=== PATIENT | female | born 1980 | race African-American/Black ===

== ENCOUNTER 2018-11-26 13:24 | Inpatient (IN) | payer OTHER ==
[~2018-11-26] VITALS: Ht 154.9 cm; Wt 181.4 kg
[2018-11-26 13:25] VITALS: BP 106/50
[2018-11-26 14:34] LABS: HEMATOCRIT 36.6 % (37.0-47.0); HEMOGLOBIN 12.1 gm/dL (12.0-15.0); MCH 29.5 pg (26.0-34.0); MCHC 32.9 g/dL (28.0-37.0); MCV 89.6 fL (80.0-100.0); PLATELET COUNT 176 thou/uL (150-400); RBC 4.09 mil/uL (4.20-5.00); RDW 16.2 % (10.5-14.5); WBC 7.2 thou/uL (4.0-11.0)
[2018-11-26 14:43] LABS: ANION GAP 8 mmol/L (7-16); BUN 28 mg/dL (7-18); CALCIUM 8.8 mg/dL (8.5-10.1); CHLORIDE 108 mmol/L (98-107); CO2 24 mmol/L (21-32); CREATININE 2.1 mg/dL (0.6-1.0); GLUCOSE 74 mg/dL (74-106); POTASSIUM 5.8 mmol/L (3.5-5.1); SODIUM 140 mmol/L (136-145)
[2018-11-26 14:52] LABS: TROPONIN-I <0.06 ng/mL (<0.06)
[2018-11-26 14:53] LABS: URINE BILIRUBIN NEGATIVE (Negative); URINE BLOOD NEGATIVE (Negative); URINE CLARITY CLEAR; URINE COLOR YELLOW; URINE GLUCOSE-RANDOM* NEGATIVE (Negative); URINE KETONES NEGATIVE (Negative); URINE NITRITE-REFLEX NEGATIVE (Negative); URINE PROTEIN (DIPSTICK) NEGATIVE (Negative); URINE UROBILINOGEN 0.2 E.U./dl (0.2-1.0)
[2018-11-26 14:55] LABS: URINE LEUKOCYTES-REFLEX 1+ (Negative)
[2018-11-26 15:01] LABS: BACTERIA-REFLEX None Seen /HPF (None Seen); CRYSTALS None Seen /LPF (None Seen); HYALINE CASTS 0-3 Few /LPF (None Seen); SQUAMOUS 4-10 Moderate /LPF (0-3); URINE RBC 0-2 Rare /HPF (0-2); URINE WBC-REFLEX 0-5 Rare /HPF (0-5)
[2018-11-26] MEDS ORDERED: NYSTATIN1 EA10 TOP (16:05)
[2018-11-26] MEDS ORDERED: B-1100 MG PO (16:05)
[2018-11-26] MEDS ORDERED: TRAMADOL 50 MG50 MG PO (16:05)
[2018-11-26] MEDS ORDERED: GABAPENTIN250 MG/5 M PO (16:06)
[2018-11-26] MEDS ORDERED: LASIX 40 MG TAB40 M2 PO (16:06)
[2018-11-26] MEDS ORDERED: CEFDINIR S250 MG/5 M PO (16:07)
[2018-11-26] MEDS ORDERED: LORAZEPAM 0.50.5 M1 PO (16:08)
[2018-11-26] MEDS ORDERED: FOLIC ACID1 MG PO (16:09)
[2018-11-26 18:06] VITALS: BP 136/84
[2018-11-26 20:00] VITALS: BP 135/60
[2018-11-26 21:17] LABS: CALCIUM 8.6 mg/dL (8.5-10.1); CREATININE 1.9 mg/dL (0.6-1.0); POTASSIUM 5.1 mmol/L (3.5-5.1)
--- NOTE | 2018-11-27 03:34 | NUR ---
NEW ADMIT FOR HYPERKALEMIA. PATIENT AOX4 MAKES NEEDS KNOWN. PATIENT CALM AND COOPERATIVE WITH MEDS AND CARE.PATIENT HAD KAYEXALATE IN THE ER, PATIENT THINKS SHE HAD LOOSE STOOLS BECAUSE OF TAKING KAYEXALATE, PATIENT CONTINOUS TO SAY SHE GETS LOOSE STOOLS WHEN SHE EATS SWEETS STUFF AND SHE HAS DUMPING SYNDROWE. SEVERAL STOOLS WERE YELLOW IN COLOR AND CHARTED IN AppSame, STOOLS HAS NO ODOR. CALCULATING MACHINE MECHANIC CALLED NEW ORDER OF IMMODIUM. PAIN MEDS GIVEN PER ORDER, PAIN 8 TO THE SCALE OF 0-10, 10 BEING THE WORST. PATIENT IN BED ASLEEP NO S/S OF PAIN OR DISCOMFORT. PATIENT IS ON 2L OF OXYGEN NO SHORTNESS OF AIR OR DISTRESS NOTED THIS SHIFT. PATIENT NEEDS X2-3 ASSIST WITH ADL, BED MOBILITY, TRANSFER AND TOILETING. PATIENT USES A BED CHEN. PATIENT SKIN IS WARM AND INTACT, NO BRUISES OR OPEN AREAS NOTED. PATIENT IN BED ASLEEP AT THIS TIME BREATHING REGULAR AND UNLABOURED.
[2018-11-27 05:24] LABS: ALBUMIN 1.7 g/dL (3.4-5.0); CALCIUM 8.5 mg/dL (8.5-10.1); CREATININE 1.9 mg/dL (0.6-1.0); PHOSPHORUS 4.4 mg/dL (2.5-4.9)
[2018-11-27 05:25] LABS: POTASSIUM 4.1 mmol/L (3.5-5.1)
[2018-11-27 08:00] VITALS: BP 102/57
[2018-11-27] MEDS ORDERED: TRAMADOL 50 MG50 MG PO (09:28)
--- NOTE | 2018-11-27 11:56 | NUR ---
Assumed pt care this am, pt is obese and canont get off the bed. Pt mentioned that she was in [facility] ([phone]) for 8 days prior to going home. Pt spent 1 day at home prior to admissions here d/t fall. Pt did not complete her stay in [facility] due to unsatisfactory service as per pt. Pt did verbalize that she wants to go back to a different rehab. DC orders given by Dr. Bennett, informed washhouse worker since pt was not seen by CM. Spoke to Ysabel and informed her. Dr. Bennett informed us that he had spoken to Maryana (MAUDE) yesterday and arrangements were to be made. Left a vm for Amairani to get back to us.
[2018-11-27 15:00] VITALS: BP 115/65
[2018-11-27 19:45] VITALS: BP 117/65
[2018-11-28 03:31] VITALS: BP 131/62
[2018-11-28 07:35] VITALS: BP 123/57
--- NOTE | 2018-11-28 07:44 | NUR ---
PT LYING IN BED. VOIDING PER BEDPAN. RESTING COMFORTABLY. NO NEEDS VOICED. CALL LIGHT WITHIN REACH. WILL CONTINUE TO PROVIDE FREQUENT OBSERVATION.
[2018-11-28 13:18] VITALS: BP 127/78
--- NOTE | 2018-11-28 17:00 | NUR ---
ASSUMED CARE AT 0700. AXOX4. SEEN BY AND PT WAS ALREADY MEDICALLY STABLE TO D/C HOME YESTURDAY. PT REQUESTED TO BE SENT TO REHAB. PER MD, SOCIAL SERVICE WAS NOTIFIED AND SW TO F/U TOMORROW. IVF D/C TODAY. NO S/S ACUTE DISTRESS NOTED OR REPORTED AT THIS TIME. WILL CONT TO MONITOR FOR ANY CHANGES IN CONDITION.
[2018-11-28 19:20] VITALS: BP 131/70
--- NOTE | 2018-11-28 21:54 | EKG ---
[address] [place] [address] ELECTROCARDIOGRAM REPORT Name: THOMAS ZHONG Room #: 461-P ADM IN M.R.#: [id number] Admission: 11/26/18 Attend Phys: Holly Bennett Discharge: Date of : 78 Report #: [id number] THIS REPORT FOR: //name// [facility] ED Test Date: 2018-11-26 Test Time: 13:44:05 Pat Name: THOMAS ZHONG Department: Room: 461 Gender: F Senior Benefits Analyst: KIERAN : 1980 Requested By: Francesco Bello Order Number: [id number] MD: Ramírez Kelley Measurements Intervals [place] Rate: 75 P: 77 CT: 132 QRS: 85 QRSD: 107 T: 59 QT: 389 QTc: 435 Interpretive Statements Sinus rhythm No previous ECG available for comparison Electronically Signed On 11-28-2018 21:53:50 TARIFF COMPILER by Ramírez Kelley [email or web address] <ELECTRONICALLY SIGNED> By: Ramírez Kelley MD 11/28/18 2153 1344 1344 Ramírez Kelley MD /[place]
[2018-11-29 04:16] VITALS: BP 121/60
--- NOTE | 2018-11-29 05:22 | NUR ---
PT LYING IN BED. LORTAB PROVIDING PAIN RELIEF. VOIDING PER BEDPAN. RESTING COMFORTABLY. NO NEEDS VOICED. CALL LIGHT WITHIN REACH. WILL CONTINUE TO PROVIDE FREQUENT OBSERVATION.
[2018-11-29 08:00] VITALS: BP 126/67
--- NOTE | 2018-11-29 12:27 | NUR ---
PT ADMITTED RELATED TO HYPERKALEMIA. CM REVIEWED CHART AND SPOKE WITH CARE TEAM. CM MET WITH PT AT BEDSIDE THIS DAY. PT IS A&O X4. CM ROLE INTRODUCED. PT INDICATED SHE LIVES IN A HOUSE WITH HER BROTHER WITH NO STEPS TO ENTER AND NO STEPS INSIDE. 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 PT INDICATED SHE HAD BEEN SKILLED IN THE RECENT PAST. PT INDICATED SHE WAS INTERSETED IN GOING TO [facility] FOR THERAPIES UPON DC. BRIANDA WITH [facility] WAS HERE TO ASSESS FOR POSSIBLE ADMISSION. SHE INDICATED THAT THEY WOULD LIKEY BE ABLE TO ACCEPT PT. CM TO FOLLOW INDICATED WITH DC PLANNING.
--- NOTE | 2018-11-29 13:50 | NUR ---
RD consult received to discuss renal diet with pt. Admitted with hyperkalemia, hx lymphedema. Extreme class III obesity, BMI 75.6. Upon visit, pt had finished eating lunch, less than 50% consumed and stated appetite has not been good at all past 4-5 days. Would like to try nutrition supplement so will order 1 Ensure Enlive until appetite improves. Reviewed renal guidelines but pt not too interested in information. Noted possible discharge to rehab facility. Low nutrition risk
--- NOTE | 2018-11-29 14:06 | NUR ---
[facility] INDICATED THAT THEY WERE ABLE TO ACCEPT PT FOR ADMISSION THIS DAY. PT IS AWARE AND AGREEABLE. THEY HAVE ARRANGD VAN TRANSPORT FOR 1630 THIS AFTERNOON. CHART COPY ORDERED. ORDERS ARE TO BE FAXED. REPORT TO BE CALLED TO . NO OTHER CM INTERVENTION INDICATED AT THIS TIME. CASE CLOSED.
--- NOTE | 2018-11-29 14:33 | NUR ---
patient to dc today to [facility]. DP faxed dc paperwork to facility and called to ensure delivery. CC ordered and dc papers given to racing secretary for cc envelope.
--- NOTE | 2018-11-29 15:36 | NUR ---
ASSUMED CARE AT 0700. AXOX4. PT GOT ACCEPTED TO [facility]. WILL BE LEAVING AT 1630. SEEN BY /PT/OT AT BEDSIDE. NO S/S ACUTE DISTRESS NOTED OR REPORTED AT THIS TIME. WILL CONT TO MONITOR ANY CHANGES IN CONDITION.
== END 2018-11-29 20:32 | DRG 640 ==
LOC: ER 13:24 → 4W 13:53 → EROBS 13:53 → 4W 18:26
PROVIDERS: Emergency Medicine; ADMIT Hospitalist
DX: E87.5 Hyperkalemia (principal); E43 Unspecified severe protein-calorie malnutrition; Z68.45 Body mass index [BMI] 70 or greater, adult; N18.3 Chronic kidney disease, stage 3 (moderate); E66.01 Morbid (severe) obesity due to excess calories; W18.39XA Other fall on same level, initial encounter; Y93.89 Activity, other specified; Y92.89 Other specified places as the place of occurrence of the external cause; Y99.8 Other external cause status; Z79.899 Other long term (current) drug therapy
CPT/HCPCS: 10047

== ENCOUNTER 2019-02-04 17:24 | Inpatient (IN) | payer OTHER ==
[~2019-02-04] VITALS: Ht 157.5 cm; Wt 167.4 kg
[2019-02-04 17:24] VITALS: BP 146/129
[~2019-02-04 17:24] MED LIST: B-1100 MG PO; CEFDINIR S250 MG/5 M PO; FOLIC ACID1 MG PO; GABAPENTIN250 MG/5 M PO; LASIX 40 MG TAB40 M2 PO; LORAZEPAM 0.50.5 M1 PO; NYSTATIN1 EA10 TOP; TRAMADOL 50 MG50 MG PO
[2019-02-04 17:49] LABS: ABSOLUTE NEUTROPHILS 1.7 thou/uL (1.4-8.2); ANION GAP 10 mmol/L (7-16); BASOPHILS 0.6 % (0.0-2.0); BUN 8 mg/dL (7-18); CALCIUM 7.3 mg/dL (8.5-10.1); CHLORIDE 108 mmol/L (98-107); CO2 22 mmol/L (21-32); EOSINOPHILS 0.3 % (0.0-3.0); GLUCOSE 97 mg/dL (74-106); LYMPHOCYTES 35.2 % (24.0-44.0); MCH 29.4 pg (26.0-34.0); MCHC 32.9 g/dL (28.0-37.0); MCV 89.6 fL (80.0-100.0); MONOCYTES 11.1 % (1.0-8.0); POLYS 52.8 % (36.0-66.0); POTASSIUM 3.4 mmol/L (3.5-5.1); RBC 2.13 mil/uL (4.20-5.00); RDW 14.9 % (10.5-14.5); SODIUM 140 mmol/L (136-145); WBC 3.3 thou/uL (4.0-11.0)
[2019-02-04 17:50] LABS: HEMATOCRIT 19.1 % (37.0-47.0); HEMOGLOBIN 6.3 gm/dL (12.0-15.0)
[2019-02-04] MEDS ORDERED: PERCOCET 10-321 EACH PO (17:57)
[2019-02-04] MEDS ORDERED: PERCOCET 10-321 EAC1 PO (17:58)
[2019-02-04 18:00] LABS: ALBUMIN 1.7 g/dL (3.4-5.0); MAGNESIUM 1.1 mg/dL (1.8-2.4); PHOSPHORUS 2.8 mg/dL (2.5-4.9); SGOT 23 U/L (15-37); SGPT 12 U/L (30-65); TOTAL BILIRUBIN 0.6 mg/dL (<0.1-1.0); TOTAL PROTEIN 5.9 g/dL (6.4-8.2); TROPONIN-I <0.06 ng/mL (<0.06)
[2019-02-04 18:09] LABS: ANISOCYTOSIS 1+
[2019-02-04 18:11] LABS: PLATELET COUNT 41 thou/uL (150-400)
[2019-02-04 18:28] VITALS: BP 109/80
[2019-02-04 18:37] LABS: OBSERVED RETIC COUNT 1.37 % (0.6-2.6)
[2019-02-04 18:41] LABS: % SATURATION 32 % (20-39); IRON 22 ug/dL (50-170); TIBC 69 ug/dL (250-450)
[2019-02-04 19:11] VITALS: BP 109/80
[2019-02-04 21:58] VITALS: BP 110/62; BP 126/62
[2019-02-04 22:56] LABS: URINE BILIRUBIN 1+ (Negative); URINE BLOOD NEGATIVE (Negative); URINE CLARITY SL CLOUDY; URINE COLOR YELLOW; URINE GLUCOSE-RANDOM* NEGATIVE (Negative); URINE KETONES NEGATIVE (Negative); URINE LEUKOCYTES-REFLEX TRACE (Negative); URINE NITRITE-REFLEX NEGATIVE (Negative); URINE PROTEIN (DIPSTICK) NEGATIVE (Negative); URINE UROBILINOGEN 0.2 E.U./dl (0.2-1.0)
[2019-02-04 23:14] LABS: HYALINE CASTS 4-10 Moderate /LPF (None Seen); MUCUS 4-6 Moderate strn/LPF (None Seen); SQUAMOUS >10 Many /LPF (0-3)
[2019-02-04 23:15] LABS: CRYSTALS None Seen /LPF (None Seen); URINE RBC 3-10 Few /HPF (0-2); URINE WBC-REFLEX 0-5 Rare /HPF (0-5)
--- NOTE | 2019-02-05 01:42 | NUR ---
PT GIVEN BLOOD DURING SHIFT PT USED CALL LIGHT EFFECTIVELY PT GIVEN FENTANLY FOR PAIN.
[2019-02-05 02:39] VITALS: BP 123/64
[2019-02-05 07:45] VITALS: BP 107/47
--- NOTE | 2019-02-05 08:00 | NUR ---
ASSESMENT COMPLETED. VSS. A/O/FLAT. PAIN MANAGED BY MEDS ORDERED. NO NOTED SOA. NO NV. PT RESTING IN BED. WILL CONT. TO MONITOR.
[2019-02-05 16:40] VITALS: BP 125/56
[2019-02-05 19:20] VITALS: BP 117/62
[2019-02-05 23:10] VITALS: BP 120/68
[2019-02-06 03:30] VITALS: BP 130/82
--- NOTE | 2019-02-06 04:48 | NUR ---
ASSUMD PT CARE 1899. PT ALERT AND ORIENTED. REASSESSMENT COMPLETE. VSS. IV DRESSING C/D/I, NO SIGNS OF INFILTRATIN. PT DENIES N/V. REPORTED BROOKS, SEE EMAR. PT CALL LIGHT WITHIN REACH. WILL OCNTINUE POC UNTIL EOS.
[2019-02-06 05:07] LABS: HEMATOCRIT 29.7 % (37.0-47.0); MCH 29.6 pg (26.0-34.0); MCHC 33.3 g/dL (28.0-37.0); MCV 88.8 fL (80.0-100.0); RBC 3.34 mil/uL (4.20-5.00); RDW 15.1 % (10.5-14.5); WBC 5.4 thou/uL (4.0-11.0)
[2019-02-06 05:21] LABS: HEMOGLOBIN 9.9 gm/dL (12.0-15.0)
[2019-02-06 06:15] VITALS: BP 111/49
[2019-02-06 08:20] VITALS: BP 121/53
--- NOTE | 2019-02-06 11:28 | NUR ---
ASSESMENT COMPLETED. VSS. A/O. DENIES PAIN THIS AM. NO NOTED SOA. NO NV. PT WANTS TO SLEEP MORE THIS AM. NO CONCERNS VOICED. PT RESTING IN BED. WILL CONT. TO MONITOR.
--- NOTE | 2019-02-06 12:49 | NUR ---
SPOKE TO PT. PT STATED DOCTOR STATED SHE IS GOING TO REHAB. PT PREFFERS TOP GO TO [facility].
[2019-02-06 15:17] VITALS: BP 128/66
[2019-02-06 15:24] VITALS: BP 147/80
[2019-02-06 19:47] VITALS: BP 134/68
[2019-02-07 04:53] VITALS: BP 110/55
--- NOTE | 2019-02-07 05:26 | NUR ---
ASSUMD PT CARE 1899. PT ALERT AND ORIENTED. REASSESSMENT COMPLETE. VSS. IV DRESSING C/D/I, NO SIGNS OF INFITRATION. PT DENIES N/V, REPORTED PAIN, SEE EMAR. PT BECAME TEARFUL AND UPSET AT ONE POINT IN NIGHT, STATES SHE "WANTS TO GET BACK TO HERSELF". PT ENCOURAGED TO KEEP WORKING, FOLLOWING PLAN OF CARE, STAYING POSITIVE. PT CALL LIGHT AND PERSONAL BELONINGS WITHIN REACH. WILL CONTINUE POC UNTIL EOS.
[2019-02-07 08:04] VITALS: BP 122/59
[2019-02-07] MEDS ORDERED: MIRALAX17 GM PO (09:49)
[2019-02-07] MEDS ORDERED: PERCOCET 10-321 EAC1 PO (09:49)
--- NOTE | 2019-02-07 14:44 | NUR ---
ASSESSMENT-PT LIVES AT HOME WITH HER 2 BROTHERS. PT HAD A FALL AT HOME AND NOW CANNOT AMBULATE. FAMILY TO BRING BOOT FROM HOME TO REHAB. PT WANTS TO GO TO [facility]. ALERTED BRIANDA FROM [facility] FOR THE EVAL AND THEY CAN ACCEPT PT TODAY. CHART COPY ORDERED. [facility] ARRANGED STRETCHER VAN FOR 1700 TODAY. PT AWARE AND WILL NOTIFY HER FAMILY.
--- NOTE | 2019-02-07 16:22 | NUR ---
REPORT CALLED IN TO NURSE CAT AT FACILITY. WAITING FOR TRANSPORT.
[2019-02-07 17:16] VITALS: BP 116/59
== END 2019-02-07 19:00 | DRG 808 ==
LOC: ER 17:24 → 4E 18:06 → EROBS 18:06 → 4W 19:35 → 4E 19:35
PROVIDERS: Emergency Medicine; Internal Medicine Hematology & Oncology; Nurse Practitioner Acute Care; ADMIT Hospitalist
PROC: 30233N1 Transfusion of Nonautologous Red Blood Cells into Peripheral Vein, Percutaneous Approach (ICD-10-PCS; principal; 2019-02-04)
DX: D61.818 Other pancytopenia (principal); E43 Unspecified severe protein-calorie malnutrition; Z68.44 Body mass index [BMI] 60.0-69.9, adult; E46 Unspecified protein-calorie malnutrition; E16.2 Hypoglycemia, unspecified; E87.5 Hyperkalemia; D64.9 Anemia, unspecified; E66.01 Morbid (severe) obesity due to excess calories; S93.401A Sprain of unspecified ligament of right ankle, initial encounter; I89.0 Lymphedema, not elsewhere classified; F32.9 Major depressive disorder, single episode, unspecified; R19.7 Diarrhea, unspecified; E83.42 Hypomagnesemia; W18.39XA Other fall on same level, initial encounter; Y93.89 Activity, other specified; Y92.89 Other specified places as the place of occurrence of the external cause; Y99.8 Other external cause status; Z98.84 Bariatric surgery status
CPT/HCPCS: 10045; 10084; 10183; 27000

== ENCOUNTER 2019-06-28 12:24 | Emergency (ER) | payer OTHER ==
[~2019-06-28] VITALS: Ht 144.8 cm; Wt 154.2 kg
[~2019-06-28 12:24] MED LIST changes: +MIRALAX17 GM PO; +PERCOCET 10-321 EAC1 PO; +PERCOCET 10-321 EACH PO
[2019-06-28] MEDS ORDERED: LASIX 20 MG TAB20 MG PO (12:31)
[2019-06-28 12:51] LABS: ABSOLUTE NEUTROPHILS 4.3 thou/uL (1.4-8.2); BASOPHILS 0.6 % (0.0-2.0); EOSINOPHILS 1.7 % (0.0-3.0); HEMATOCRIT 37.9 % (37.0-47.0); HEMOGLOBIN 12.2 gm/dL (12.0-15.0); LYMPHOCYTES 27.4 % (24.0-44.0); MCH 28.6 pg (26.0-34.0); MCHC 32.3 g/dL (28.0-37.0); MCV 88.6 fL (80.0-100.0); PLATELET COUNT 286 thou/uL (150-400); POLYS 63.3 % (36.0-66.0); RBC 4.28 mil/uL (4.20-5.00); RDW 14.4 % (10.5-14.5); WBC 6.8 thou/uL (4.0-11.0)
[2019-06-28 13:32] LABS: URINE BILIRUBIN NEGATIVE (Negative); URINE BLOOD 2+ (Negative); URINE CLARITY SL CLOUDY; URINE COLOR YELLOW; URINE GLUCOSE-RANDOM* NEGATIVE (Negative); URINE KETONES NEGATIVE (Negative); URINE PROTEIN (DIPSTICK) NEGATIVE (Negative); URINE UROBILINOGEN 0.2 E.U./dl (0.2-1.0)
[2019-06-28 13:33] LABS: URINE LEUKOCYTES-REFLEX 1+ (Negative); URINE NITRITE-REFLEX POSITIVE (Negative)
[2019-06-28 13:38] LABS: SQUAMOUS >10 Many /LPF (0-3)
[2019-06-28 13:40] LABS: BACTERIA-REFLEX >30 Many /HPF (None Seen); CASTS None Seen /LPF (None Seen)
[2019-06-28 13:41] LABS: CRYSTALS None Seen /LPF (None Seen); URINE RBC 3-10 Few /HPF (0-2)
[2019-06-28 14:11] LABS: CALCIUM 9.1 mg/dL (8.5-10.1); CREATININE 1.3 mg/dL (0.6-1.0)
[2019-06-28] MEDS ORDERED: ONDANSETRON HCL4 M2 PO (14:27)
[2019-06-28] MEDS ORDERED: MACROBID 100 M100 M1 PO (14:27)
--- NOTE | 2019-06-28 14:30 | EKG ---
[address] [place] [address] ELECTROCARDIOGRAM REPORT Name: THOMAS ZHONG Room #: REG HEMANT Ashraf#: [id number] ������������������ Admission: 06/28/19 ������������������ Attend Phys: Discharge: ������������������ Date of : 78 Report #: [id number] ����������������������������������������������������������������� [id number] THIS REPORT FOR: //name// [facility] ED Test Date: 2019-06-28 Test Time: 12:51:31 Pat Name: THOMAS ZHONG Department: Room: Gender: F Lube Worker: NAYELI : 1980 Requested By: Yue Harrell Order Number: [id number] MD: Ramírez Kelley Measurements Intervals [place] Rate: 68 P: 45 MD: 145 QRS: 37 QRSD: 99 T: 2 QT: 416 QTc: 443 Interpretive Statements Sinus rhythm Low voltage, precordial leads Nonspecific T abnormalities, anterior leads Compared to ECG 11/26/2018 13:44:05 Low QRS voltage now present T-wave abnormality now present Electronically Signed On 06-28-2019 14:30:14 CDT by Ramírez Kelley [email or web address] ��������������������������������������������� <ELECTRONICALLY SIGNED> ���������������������������������������� By: Ramírez Kelley MD ��������������������������������������������� 06/28/19 1430 1251 1251 Ramírez Kelley MD /[place]
[2019-06-28 14:46] VITALS: BP 125/63
== END 2019-06-28 14:47 | disposition home or self-care (01) ==
LOC: ER 12:24
PROVIDERS: Nurse Practitioner Family
DX: N39.0 Urinary tract infection, site not specified (principal); R42 Dizziness and giddiness; E66.01 Morbid (severe) obesity due to excess calories; Z68.45 Body mass index [BMI] 70 or greater, adult; Z91.013 Allergy to seafood

== ENCOUNTER 2020-07-27 16:17 | Emergency (ER) | payer OTHER ==
[~2020-07-27] VITALS: Ht 162.6 cm; Wt 104.3 kg
[~2020-07-27 16:17] MED LIST changes: +LASIX 20 MG TAB20 MG PO; +MACROBID 100 M100 M1 PO; +ONDANSETRON HCL4 M2 PO
[2020-07-27] MEDS ORDERED: MELOXICAM15 MG PO (18:02)
[2020-07-27 18:05] VITALS: BP 173/73
== END 2020-07-27 18:10 | disposition home or self-care (01) ==
LOC: ER 16:17
DX: M25.561 Pain in right knee (principal); E66.01 Morbid (severe) obesity due to excess calories; Z68.39 Body mass index [BMI] 39.0-39.9, adult; Z79.2 Long term (current) use of antibiotics; Z79.899 Other long term (current) drug therapy; Z91.013 Allergy to seafood

== ENCOUNTER 2021-01-19 22:04 | Inpatient (IN) | payer OTHER ==
[~2021-01-19] VITALS: Ht 152.4 cm; Wt 132.0 kg
--- NOTE | ~2021-01-19 | EMS ---
[address] [address] EMS Patient Care Report Name: THOMAS ZHONG Room #: REG HEMANT Ashraf#: [id number] Admission: 01/19/21 Attend Phys: Discharge: Date of : 78 Report #: [id number] THIS REPORT FOR: //name// Report Transmitted: 01/19/2021 22:38 EMS Care Summary [place], [place]/[facility] Incident [id number] @ 01/19/2021 21:34 Incident [address] [place] [address] Patient THOMAS ZHONG Female, 40 Years 1980 Patient Address [address] [place] [address] Patient History Back Pain (Chronic), Patient Allergies Iodine,Shrimp allergy, Patient Medications Percocet, Chief Complaint dyspnea Disposition Transported No Lights/[place] Dispatch Reason Breathing Problem Transported To [facility] Narrative pt found walking around house. pt a&ox4 gcs 15 and did not present in apparent distress. pt stated she has had covid x8 days and complained of soa and weakness. pt agreed to be transported to [facility]. pt stated she was seen at [facility] several days ago for the same complaint. pt was advised that ems has to prepare [facility] [address] [place] [address] EMS Patient Care Report Name: THOMAS ZHONG Room #: RAÚL Ashraf#: [id number] Admission: 01/19/21 Attend Phys: Discharge: Date of : 78 Report #: [id number] ambulance and isolation equipment. ems brought ems cot near ramp after pt stated she cant walk far. pt spoke in full sentences without dyspnea. pt was transferred onto ems cot and was secured in a semi fowlers position without incident. bystander on scene came out of house and crew asked him if he wears a mask due to covid pos inhabitants. bystander aggressively stated he is also covid pos. ems asked bystander if he could put a mask on during contact, bystander refused. pt was loaded into ambulance. pt was administered 4lpm o2 via nc. pt was transported non emergent. pt was obese and nibp was unable to be obtained. palp bp was the only bp obtainable. transport was uneventful and pt rested on ems cot. pt apologized on behalf of bystanders comments. pt care was transferred to appropriate staff and ems goes back in service. pts wallet, phone, and vacuum cleaner assembler were left with pt. Initial Vitals @21:45P: 74,R: 20,Pain: 0/10,GCS: 15,SpO2: 86,Revised Trauma: 12, @22:00P: 74,R: 20,GCS: 15,SpO2: 95,Revised Trauma: 12, Assessments @21:39MENTAL:No Abnormalities,SKIN:No Abnormalities,HEENT:Head/Face: No Abnormalities,Eyes: No Abnormalities,Neck/Airway: No Abnormalities,LUNG SOUNDS:General: No Abnormalities,Left Upper: No Abnormalities,Right Upper: No Abnormalities,Left Lower: No Abnormalities,Right Lower: No Abnormalities,ABDOMEN:General: No Abnormalities,Left Upper: No Abnormalities,Right Upper: No Abnormalities,Left Lower: No Abnormalities,Right Lower: No Abnormalities,PELVIS//GI:No Abnormalities,EXTREMITIES:Left Arm: No Abnormalities,Right Arm: No Abnormalities,Left Leg: No Abnormalities,Right Leg: No Abnormalities,PULSE:NEURO:No Abnormalities,@21:59MENTAL:No Abnormalities,SKIN:No Abnormalities,HEENT:Head/Face: No Abnormalities,Eyes: No Abnormalities,Neck/Airway: No Abnormalities,LUNG SOUNDS:General: No Abnormalities,Left Upper: No Abnormalities,Right Upper: No Abnormalities,Left Lower: No Abnormalities,Right Lower: No Abnormalities,ABDOMEN:General: No Abnormalities,Left Upper: No Abnormalities,Right Upper: No Abnormalities,Left Lower: No Abnormalities,Right Lower: No Abnormalities,PELVIS//GI:No Abnormalities,EXTREMITIES:Left Arm: No Abnormalities,Right Arm: No Abnormalities,Left Leg: No Abnormalities,Right Leg: No Abnormalities,PULSE:NEURO:No Abnormalities, Impression Shortness of breath Procedures @21:39ALS AssessmentResponse: UnchangedSucceeded@21:46Oxygen FlowRate: 4 Device: Nasal Cannula (NC) Response: ImprovedSucceeded Timeline 21:32,Call Received [facility] [address] [place] [address] EMS Patient Care Report Name: ZHONGTHOMAS Room #: REG HEMANT Ashraf#: [id number] Admission: 01/19/21 Attend Phys: Discharge: Date of : 78 Report #: [id number] 21:32,Dispatch Notified 21:34,Dispatched 21:35,En Route 21:38,On Scene 21:39,At Patient 21:39,ALS Assessment,Response: UnchangedSucceeded, 21:45,BP: 106/ M,PULSE: 74,RR: 20 R,SPO2: 86 Ox,ETCO2: ,BG: ,PAIN: 0,GCS: 15, 21:46,Oxygen FlowRate: 4 Device: Nasal Cannula (NC) Response: ImprovedSucceeded, 21:48,Depart Scene 22:00,BP: 104/ M,PULSE: 74,RR: 20 R,SPO2: 95 Ox,ETCO2: ,BG: ,PAIN: ,GCS: 15, 22:00,At Destination 22:21,Call Closed Disclaimer v1.1 Copyright 2020 [email or web address] This EMS Care Summary contains data elements from the applicable legal record (which may be displayed differently). It is designed to provide pertinent information for the following purposes: continuity of care, clinical quality, and state data reporting. The complete legal record is available to ED staff and administrators of the receiving hospital in [employer] Patient Tracker. All data is provided "as is."
[~2021-01-19 22:04] MED LIST changes: +MELOXICAM15 MG PO
[2021-01-19 22:06] VITALS: BP 124/64
[2021-01-20 00:03] LABS: ABSOLUTE NEUTROPHILS 3.6 thou/uL (1.4-8.2); BASOPHILS 0.4 % (0.0-2.0); EOSINOPHILS 0.1 % (0.0-3.0); HEMATOCRIT 33.6 % (37.0-47.0); LYMPHOCYTES 14.7 % (24.0-44.0); MCH 28.4 pg (26.0-34.0); MCHC 32.6 g/dL (28.0-37.0); MCV 87.3 fL (80.0-100.0); MONOCYTES 8.2 % (1.0-8.0); PLATELET COUNT 221 thou/uL (150-400); POLYS 76.6 % (36.0-66.0); RBC 3.85 mil/uL (4.20-5.00); RDW 13.9 % (10.5-14.5); WBC 4.7 thou/uL (4.0-11.0)
[2021-01-20 00:11] LABS: ANION GAP 12 mmol/L (7-16); BUN 8 mg/dL (7-18); CALCIUM 7.8 mg/dL (8.5-10.1); CHLORIDE 103 mmol/L (98-107); CO2 25 mmol/L (21-32); CREATININE 1.2 mg/dL (0.6-1.0); GLUCOSE 86 mg/dL (74-106); POTASSIUM 4.1 mmol/L (3.5-5.1); SODIUM 140 mmol/L (136-145)
[2021-01-20 00:15] LABS: INR 0.99; PROTIME 10.8 Seconds (9.3-11.4)
[2021-01-20 00:22] LABS: ALBUMIN 2.4 g/dL (3.4-5.0); SGOT 25 U/L (15-37); SGPT 10 U/L (30-65); TOTAL BILIRUBIN 0.3 mg/dL (0.2-1.0); TOTAL PROTEIN 7.4 g/dL (6.4-8.2); TROPONIN-I <0.06 ng/mL (<0.06)
--- NOTE | 2021-01-20 11:05 | EKG ---
[address] [place] [address] ELECTROCARDIOGRAM REPORT Name: THOMAS ZHONG Room #: 170-6 ADM IN M.R.#: [id number] Admission: 01/20/21 Attend Phys: Frankie Wagner MD Discharge: Date of : 78 Report #: [id number] [facility] ED Test Date: 2021-01-19 Test Time: 22:30:03 Pat Name: THOMAS ZHONG Department: Room: 170 Gender: F Lithopress Operator: ALAN : 1980 Requested By: Brett Izquierdo Order Number: [id number] MD: Ramírez Kelley Measurements Intervals [place] Rate: 94 P: 31 ND: 133 QRS: 29 QRSD: 92 T: -4 QT: 363 QTc: 454 Interpretive Statements Sinus rhythm Nonspecific T abnormalities, anterior leads Compared to ECG 06/28/2019 12:51:31 No significant changes Electronically Signed On 01-20-2021 11:05:46 CDT by Ramírez Kelley [email or web address] <ELECTRONICALLY SIGNED> By: Ramírez Kelley MD 01/20/21 1105 29 29 Ramírez Kelley MD /[place]
[2021-01-20 12:44] LABS: ALBUMIN 2.3 g/dL (3.4-5.0); CALCIUM 7.9 mg/dL (8.5-10.1); CREATININE 1.1 mg/dL (0.6-1.0); POTASSIUM 4.1 mmol/L (3.5-5.1); TOTAL BILIRUBIN 0.3 mg/dL (0.2-1.0); TOTAL PROTEIN 7.5 g/dL (6.4-8.2)
--- NOTE | 2021-01-20 15:07 | HC ---
[place] [address] CONSULTATION Name: THOMAS ZHONG Room #: 170-6 ADM IN M.R.#: [id number] Admission: 01/20/21 Attend Phys: Frankie Wagnre MD Discharge: Date of : 78 Report #: [id number] THIS REPORT FOR: cc: FAM - Family physician unknown FAM - Family physician unknown Dov East MD ~ DATE OF SERVICE: 01/20/2021 INFECTIOUS DISEASE CONSULTATION ATTENDING PHYSICIAN: Dr. Wagner. REASON FOR EVALUATION: COVID-19 infection, complicated by pneumonitis. HISTORY OF PRESENT ILLNESS: Chart reviewed, patient examined. This is a 40-year-old woman who has been ill for 8 to 10 days. She was previously diagnosed with a positive COVID test 5 days ago. She has had ongoing issues with progressive cough, somewhat productive. She describes greenish sputum, also multiple episodes of diarrhea, diffuse myalgias, fatigue. She was found to be hypoxemic with a saturation 87% on room air, placed on supplemental oxygen at 2 liters. Additional evaluation noted some mild anemia. Chest x-ray showed prominent perihilar infiltrates, mild cardiomegaly. Blood cultures are sterile thus far. She is empirically started on ceftriaxone and azithromycin. ALLERGIES: None known. MEDICATIONS: Include the above noted antibiotics, azithromycin, ceftriaxone, ascorbic acid, famotidine, enoxaparin, ipratropium, albuterol inhaler, dexamethasone, p.r.n. ondansetron. PAST MEDICAL HISTORY: Sleep apnea, bilateral lower extremity lymphedema, morbid obesity, previous gastric sleeve 2018. She has had a recent Plastic Surgery to remove a large pannus. She notes ongoing issues of diarrhea, perhaps attributable to malabsorption. SOCIAL HISTORY: Nonsmoker, no ethanol. FAMILY HISTORY: Noncontributory. REVIEW OF SYSTEMS: Otherwise, unremarkable. PHYSICAL EXAMINATION: GENERAL: She is pleasant, alert, cooperative, in assp-bo-phomwdjb distress at this point. She does have a frequent cough. She is lucid. VITAL SIGNS: Temperature 100.3 earlier, pulse 77, respirations 32, blood [address] [place] [address] CONSULTATION Name: THOMAS ZHONG Room #: 170-6 ADM IN M.R.#: [id number] Admission: 01/20/21 Attend Phys: Frankie Wagner MD Discharge: Date of : 78 Report #: [id number] pressure 107/60, saturation 94% on 2 liters nasal cannula. HEENT: Normocephalic. Extraocular muscles intact. NECK: Supple. LUNGS: Diminished distant few scattered coarse breath sounds. HEART: Distant, regular. I do not appreciate a murmur. ABDOMEN: Obese, soft, nontender. EXTREMITIES: No cyanosis. GENITOURINARY AND RECTAL: Deferred. LABORATORY DATA: As described above. Blood cultures sterile thus far. Chest x-ray, bilateral infiltrates. Coronavirus PCR was positive. Electrolytes: Sodium 140, potassium 4.1, chloride 103, bicarbonate is 25, anion gap of 12, BUN and creatinine 8 and 1.2 and glucose of 86. AST of 25, ALT of 10. Albumin 2.4, total protein 7.4. Estimated GFR of 60. ProBNP of 186. Lactic acid 0.9. test was negative. CBC: White count of 4.7, H and H 11.0 and 33.6, platelets of 221. ASSESSMENT: COVID-19 infection, complicated by pneumonitis and respiratory failure in the setting of morbid obesity. We will continue empiric antibacterial therapy, have started corticosteroids. We will addend remdesivir and Actemra to her regimen in addition to zinc and cholecalciferol. She remains quite tenuous. Continue supportive care. Monitor expectantly. <ELECTRONICALLY SIGNED> By: Dov East MD 01/20/21 1507 0913 0926 Dov East MD /nt
[2021-01-20 16:58] VITALS: BP 128/76
[2021-01-20 18:02] VITALS: BP 124/77
--- NOTE | 2021-01-20 18:39 | NUR ---
PATIENT ADMITTED TO UNIT AT THIS TIME. SHE IS ALERT ORIENTED X4. AMBULATES WITH SLOW STAGGERING GAIT. ON OXYGEN. WILL CONT DEVONN PLAN OF CARE.
[2021-01-20 20:30] VITALS: BP 137/86
[2021-01-20 23:35] VITALS: BP 126/55
[2021-01-21 04:35] VITALS: BP 127/76
[2021-01-21 06:30] LABS: HEMATOCRIT 31.7 % (37.0-47.0); HEMOGLOBIN 10.4 gm/dL (12.0-15.0); MCH 28.7 pg (26.0-34.0); MCV 86.8 fL (80.0-100.0); RBC 3.65 mil/uL (4.20-5.00); RDW 14.1 % (10.5-14.5); WBC 3.1 thou/uL (4.0-11.0)
[2021-01-21 07:07] LABS: ALBUMIN 2.1 g/dL (3.4-5.0); CALCIUM 8.2 mg/dL (8.5-10.1); DIRECT BILIRUBIN 0.1 mg/dL (<0.1-0.2); PHOSPHORUS 2.6 mg/dL (2.6-4.7); POTASSIUM 4.2 mmol/L (3.5-5.1); TOTAL BILIRUBIN 0.2 mg/dL (0.2-1.0)
[2021-01-21 07:17] VITALS: BP 126/75
--- NOTE | 2021-01-21 07:29 | NUR ---
PT MAKING SLOW PROGRESS TOWARDS GOALS. PT ABLE TO GET UP TO AND BACK FROM BSC WITHOUT SIGNIFICANT SOA. O2 UP TO 4L PER NC OVERNIGHT. LUNGS CTA UPPER CATHERINE WITH CRACKLES IN BL LOWER LOBES. OCCASIONAL HARSH, OCCASIONAL PRODUCTIVE GREENISH SPUTUM. CONTINUE TO MONITOR.
[2021-01-21 15:25] VITALS: BP 126/72
[2021-01-21 19:35] VITALS: BP 130/83
--- NOTE | 2021-01-21 19:40 | NUR ---
ASSUMED PATIENT CARE AT 0700. A/O X4. TOLERATED ON 4L/NC. DENIES PAIN. UP WITH ASSISTED TO BCS.SLOWLY TOWARDS POC GOALS.
[2021-01-22 00:11] VITALS: BP 117/66
[2021-01-22 04:01] VITALS: BP 130/64
[2021-01-22 05:02] LABS: ABSOLUTE NEUTROPHILS 2.2 thou/uL (1.4-8.2); BASOPHILS 0.2 % (0.0-2.0); HEMATOCRIT 31.4 % (37.0-47.0); HEMOGLOBIN 10.2 gm/dL (12.0-15.0); LYMPHOCYTES 24.4 % (24.0-44.0); MCH 28.2 pg (26.0-34.0); MCHC 32.5 g/dL (28.0-37.0); MCV 86.9 fL (80.0-100.0); MONOCYTES 16.5 % (1.0-8.0); PLATELET COUNT 312 thou/uL (150-400); POLYS 58.9 % (36.0-66.0); RBC 3.61 mil/uL (4.20-5.00); RDW 14.4 % (10.5-14.5); WBC 3.7 thou/uL (4.0-11.0)
[2021-01-22 05:06] LABS: ALBUMIN 2.3 g/dL (3.4-5.0); ANION GAP 11 mmol/L (7-16); BUN 16 mg/dL (7-18); CALCIUM 8.2 mg/dL (8.5-10.1); CHLORIDE 109 mmol/L (98-107); CO2 24 mmol/L (21-32); CREATININE 1.2 mg/dL (0.6-1.0); DIRECT BILIRUBIN < 0.1 mg/dL (<0.1-0.2); GLUCOSE 97 mg/dL (74-106); PHOSPHORUS 2.8 mg/dL (2.5-4.9); POTASSIUM 4.1 mmol/L (3.5-5.1); SGOT 19 U/L (15-37); SGPT 7 U/L (30-65); SODIUM 144 mmol/L (136-145); TOTAL BILIRUBIN 0.2 mg/dL (0.2-1.0); TOTAL PROTEIN 6.9 g/dL (6.4-8.2)
--- NOTE | 2021-01-22 07:13 | NUR ---
PT MAKING SLOW PROGRESS TOWARDS GOALS. ON O2 AT 5L PER NC. NOTED O2 SAT UPON EACH APPROACH 9-97%. LUNGS CTA WITH CRACKLES IN BOTH BASES. PT STATED THAT SHE FEELS SHE IS BREATHING SLIGHTLY EASIER WHEN COMPARED TO YESTERDAY.
[2021-01-22 07:16] VITALS: BP 119/56
--- NOTE | 2021-01-22 09:39 | NUR ---
WOUND CONSULT; THE PATIENT HAS MINOR WOUNDS WHICH A VIRTUALLY HEALED TO THE BILATERAL LATERAL S/P PANNOUSECTOMY SURGERY. THE RIGHT IS 1 X 0.5 X 0.1 AND THE LEFT IS 0.2 X 0.2 X 0.1. NO S/S OF INFECTION. RECOMMENDATIONS; A FOAM AG BILATERALLY, M/W/F PRN DISCUSSED WITH AISSATOU
[2021-01-22 15:33] VITALS: BP 147/92
--- NOTE | 2021-01-22 16:06 | NUR ---
INITIAL ASSESSMENT: SW reviewed chart and spoke with nursing and attending physician. Pt was admitted from home due to COVID pneumonia. Pt placed in Enhanced Isolation. Pt is afebrile and on 4-5 L of O2. Pt is on IV abx, IV steroids and IV Lasix. Pt has been started on Remdesivir and Ivermectin. JOAN spoke with pt via phone. Introduced role of SW. Pt is alert/orientated x 4. Pt states she lives at home with her boyfriend, who also has COVID. Pt's brother also has COVID and is hospitalized at [facility]. Prior to admission, pt was independent with ADLs. Pt with hx of gastric sleeve surgery. Pt with stomach surgery in December. Pt has a walker and w/c at home. Pt has been to [facility] in the past. Pt has used multiple HH agencies in the past. Pt's PCP is Dr. Saha with [facility]. Pt traveled to the [facility] recently and was exposed to COVID at that time. Pt asking for PT/OT zach. JOAN contacted attending physician to request therapy orders. Plan is for pt to discharge home when medically stable. SW is following to assist as needed with discharge planning.
--- NOTE | 2021-01-22 17:31 | NUR ---
ASSUMED PATIENT CARE AT 0700. A/O X4. TITRATED O2 TO 2L/NC PATIENT TOLERATED WELL. ON CHAIR. UP AD SHYANNE. PROGRESSING TOWARDS POC GOALS.
[2021-01-22 19:42] VITALS: BP 120/85
[2021-01-23 04:57] VITALS: BP 143/67
[2021-01-23 06:12] LABS: ALBUMIN 2.4 g/dL (3.4-5.0); ANION GAP 11 mmol/L (7-16); BUN 18 mg/dL (7-18); CALCIUM 8.1 mg/dL (8.5-10.1); CHLORIDE 109 mmol/L (98-107); CO2 24 mmol/L (21-32); CREATININE 1.1 mg/dL (0.6-1.0); DIRECT BILIRUBIN < 0.1 mg/dL (<0.1-0.2); GLUCOSE 77 mg/dL (74-106); POTASSIUM 4.1 mmol/L (3.5-5.1); SGOT 16 U/L (15-37); SGPT 8 U/L (14-59); SODIUM 144 mmol/L (136-145); TOTAL BILIRUBIN 0.2 mg/dL (0.2-1.0); TOTAL PROTEIN 6.4 g/dL (6.4-8.2)
--- NOTE | 2021-01-23 08:11 | NUR ---
PT MAKING SLOW PROGRESS TOWARDS GOALS. NOTED LUNGS SOUNDS DIMINISHED THROUGHOUT WITH JUST FINE CRACKLES NOTED OVER LLL. PT STATES SHE FEELS SHE IS BREATHING EASIER. O2 REPORTEDLY TURNED DOWN FROM 5L TO 2L. ABLE TO STAY ON 2L NC THROUGHOUT THE NIGHT.
[2021-01-23 08:41] VITALS: BP 151/91
--- NOTE | 2021-01-23 09:01 | NUR ---
WOUND CARE F/U; THE PATIENTS PANNOUS WOUNDS WERE REASSESSED TODAY. THEY ARE VIRTUALLY HEALED. NO DRAINAGE, NO MASCERATION AND NO ODOR. RECOMMENDATION; CHANGE TO INTERDRY ALONECHANGE M/W/F PRN DISCUSSED WITH AISSATOU
--- NOTE | 2021-01-23 15:54 | NUR ---
JOAN reviewed chart and spoke with nursing and attending physician. Pt remains in Enhanced Isolation due to COVID. Pt is afebrile and on 2L of O2. Pt is on IV abx and IV Lasix. Pt to finish course of Remdesivir tomorrow. Discharge home is anticipated for tomorrow. PT/OT evaluated pt earlier today. JOAN spoke with pt via phone to discuss discharge plan. Pt aware of her planned discharge tomorrow. Pt denies having any discharge needs at this time. Pt states she should have transportation home when discharged. Pt has home O2 in place through [facility] [employer]. JOAN is following to assist as needed with discharge planning.
[2021-01-23 17:01] VITALS: BP 151/116
--- NOTE | 2021-01-23 18:09 | NUR ---
PATIENT ON RA. UP AD SHYANNE. PROGRESSING TOWARDS POC GOALS.
[2021-01-23 20:34] VITALS: BP 113/89
[2021-01-24 04:42] VITALS: BP 144/68
--- NOTE | 2021-01-24 06:23 | NUR ---
Pt. slept fair during the night. Tolerating room air well. Cont. on enhanced precaution , afebrile. Up ad byron in room with steady gait. Progressing towards discharge goals.
[2021-01-24 07:31] VITALS: BP 154/73
[2021-01-24] MEDS ORDERED: PROAIR HFA8.5 GM INH (12:12)
[2021-01-24] MEDS ORDERED: VITAMIN D325 MC1 PO (12:12)
[2021-01-24] MEDS ORDERED: ZINC SULFATE50 MG PO (12:12)
[2021-01-24] MEDS ORDERED: ACEROLA C500 MG PO (12:12)
[2021-01-24] MEDS ORDERED: PEPCID20 MG PO (12:12)
[2021-01-24] MEDS ORDERED: CEFDINIR300 MG PO (12:12)
[2021-01-24] MEDS ORDERED: ULTIMATE PROBI1 EACH PO (12:39)
[2021-01-24 12:40] VITALS: BP 154/73
[2021-01-24] MEDS ORDERED: IMODIUM A-D2 MG PO (12:40)
[2021-01-24] MEDS ORDERED: METOPROLOL TART25 MG PO (14:01)
--- NOTE | 2021-01-24 14:10 | NUR ---
assumed patient care at 0700. progressing towards poc goals. dc to home now.
== END 2021-01-24 14:12 | disposition home or self-care (01) | DRG 871 ==
LOC: ER 22:04 → EROBS 01-20 01:13 → 3W 01-20 01:13
PROVIDERS: Emergency Medicine; Nurse Practitioner Family; Specialist; ADMIT Internal Medicine; ATTEND Internal Medicine
PROC: XW033E5 Introduction of Remdesivir Anti-infective into Peripheral Vein, Percutaneous Approach, New Technology Group 5 (ICD-10-PCS; principal; 2021-01-20)
DX: A41.9 Sepsis, unspecified organism (principal); U07.1 COVID-19; J12.82 Pneumonia due to coronavirus disease 2019; J80 Acute respiratory distress syndrome; N17.9 Acute kidney failure, unspecified; Z68.43 Body mass index [BMI] 50.0-59.9, adult; E66.01 Morbid (severe) obesity due to excess calories; I89.0 Lymphedema, not elsewhere classified; R65.20 Severe sepsis without septic shock; G47.33 Obstructive sleep apnea (adult) (pediatric); N18.2 Chronic kidney disease, stage 2 (mild); Z91.19 Patient's noncompliance with other medical treatment and regimen; Z91.013 Allergy to seafood; Z98.84 Bariatric surgery status
CPT/HCPCS: 10879